=== PATIENT | male | born 1960 | race Caucasian/White ===

== ENCOUNTER 2016-10-05 09:01 | Inpatient (IN) | payer BC ==
[~2016-10-05] VITALS: Ht 182.9 cm; Wt 133.1 kg
--- NOTE | ~2016-10-05 | DS ---
ADMIT: 10/05/2016 RM/LOC: 521 [facility] MR#: [id number] [facility]#: [id number] [address] [facility] [address] [place] [id number] CARIN AQUINO [address] [place] [address] General Discharge Summary SEX: M AGE: 56 : 1960 ADMISSION DATE: 10/05/2016 DISCHARGE DATE: 10/07/2016 SERVICE: Neurosurgery. REASON FOR ADMISSION: 1. Lumbar spondylosis. 2. Lumbar foraminal stenosis. 3. Right foot drop. 4. Limb weakness. PROCEDURE: Lumbar laminectomy at L3 through S1, diskectomy as needed for fragments. HOSPITAL COURSE: Mr. Aquino tolerated his procedure well. Postoperatively, he was taken to the Med-Surg floor for monitoring and care. On postoperative day #1, he was awake and alert, he was afebrile, and his vital signs were stable. He was moving all extremities x4 with improving ambulation. His incision was clean, dry, and intact. He was working with Physical Therapy and Occupational Therapy and tolerated this quite well. On postoperative day #2, he was awake and alert, he was oriented x4. He was afebrile, and his vital signs were stable. He was moving all extremities x4 with 5/5 strength. His incision was clean, dry, and intact. His CARTER drain was patent with just a small amount of serosanguineous drainage, therefore was discontinued without difficulty. He was ambulating, urinating, and defecating per his norm and was requesting discharge home. DISCHARGE CONDITION: Good. MEDICATIONS: 1. Colace 100 mg p.o. b.i.d. 2. Bacitracin thin layer to his incision daily x14 days. 3. Percocet 5 one to two tablets p.o. q.4 hours p.r.n. 4. Valium 5 mg one to two tablets p.o. q.8 hours p.r.n. 5. Ramipril 10 mg daily. 6. Simvastatin 40 mg daily. 7. Nisoldipine ER 17 mg daily. 8. Atenolol/chlorthalidone 50/25 daily. DISCHARGE INSTRUCTIONS: Per Dr. Rivers; he can have a regular diet. He may shower, he should not take any tub baths, he should pat his incision dry. He ADMIT: 10/05/2016 RM/LOC: 521 [facility] MR#: [id number] [address] [facility] [address] [place] [id number] CARIN AQUINO [address] [place] [address] General Discharge Summary SEX: M AGE: 56 : 1960 should not lift, push, or pull anything greater than 15 [address] not [address] if he is taking any of his pain medicines. He will call with any questions or concerns including neurological worsening, signs or symptoms of infection, or any other issues. FOLLOWUP: He will follow up in the [facility] with Mile Landis APRN, in two weeks per his request. DISPOSITION: He was discharged home. Total duyc-bf-rjok time for the discharge planning, care and coordination was 30 minutes. Mile Landis APRN / Mason Rivers MD / tamar JOB #: [id number] CC: Mason Rivers MD, Attending Physician Aranza Webster MD, Family Physician
[2016-10-08] MEDS ORDERED: SULAR17 MG PO (10:23)
[2016-10-08] MEDS ORDERED: ALTACE DPS10 MG PO (10:23)
[2016-10-08] MEDS ORDERED: COLACE-DPS100 MG PO (10:24)
[2016-10-08] MEDS ORDERED: BACITRACIN--O.0.9 GM TP (10:24)
[2016-10-08] MEDS ORDERED: ATENOLOL-CHLOR1 EACH PO (10:24)
[2016-10-08] MEDS ORDERED: ZOCOR DPS40 MG PO (10:24)
[2016-10-08] MEDS ORDERED: OXY IR DPS5 MG PO (10:25)
[2016-10-08] MEDS ORDERED: VALIUM-DPS5 MG PO (10:25)
[2016-10-08] MEDS ORDERED: TYLENOL DPS325 MG PO (10:25)
--- NOTE | 2016-10-11 09:52 | OR ---
ADMIT: 10/05/2016 RM/LOC: 521 [facility] MR#: [id number] [address] [id number] CARIN AQUINO [address] [place] [address] Operative/Delivery Room Report SEX: M AGE: 56 : 1960 SURGERY DATE: 10/05/2016 SURGEON: Mason Rivers MD PREOPERATIVE DIAGNOSIS: Severe stenosis with possible herniated disk fragment and severe degenerative stenosis, lumbar 3-4, 4-5, and lumbar 5-sacral 1. POSTOPERATIVE DIAGNOSIS: Severe stenosis with possible herniated disk fragment and severe degenerative stenosis, lumbar 3-4, 4-5, and lumbar 5- sacral 1. PROCEDURE: Wide lumbar 3-4, 4-5, and lumbar 5 sacral 1 laminectomy with undercutting of the medial aspect of the facets where necessary for thorough decompression of the thecal sac posteriorly with intraoperative evaluation for any free disk fragments, none were found. INTERACTIVE MEDIA MARKETING SPECIALIST: Mile Landis APRN DESCRIPTION: After gaining informed consent, the patient was taken to operative theater, placed under general endotracheal anesthesia in a supine position. He was turned prone on a Jose Raul table. All pressure points were purposely padded prior to performing the procedure. A time-out was utilized to ascertain the correct site and side of surgery as well as other pertinent patient historical information. Counts were obtained at beginning and end of case and no changes betwixt the two. Antibiotics given before 1 hour of incision. The fluoroscope was brought into the field and L3 through S1 levels were delineated. An incision was fashioned in the midline, this was then taken down sharply through the thoracodorsal fascia, subperiosteally dissecting off the spinous process and lamina out toward the facets without injuring the posterior facet capsules. Pristine hemostasis was obtained. Self-retaining retractors were placed. At this point, various curettes, rongeurs, and a high- speed drill were used to resect as much of the posterior elements from overlying the lumbar 3-4 space and neural foramen through the 4-5 and L5-S1 levels. The very compressive degenerative ligamentum flavum was resected. The thecal sac was visualized and then the facets were undercut where necessary, widely decompressing the thecal sac posteriorly. Next our attention was paid to lumbar 3-4 level and down towards the 4-5 level trying to evaluate for what appeared to be a free disk fragment on the prior MRI, this was unable to be found intraoperatively. Once the thecal sac was widely decompressed, I was able to sound out of the neural foramen at lumbar 3-4, 4- 5, and lumbar 5 sacral 1 bilaterally and without sign of complication and with good apparent room for neurological transit. Attention was then turned to closure. A CARTER drain was daylighted out. The thoracodorsal fascia was closed with simple interrupted 0 Vicryl, simple inverted interrupted 2-0 Vicryl used ADMIT: 10/05/2016 RM/LOC: 521 [facility] MR#: [id number] [address] [place] [id number] CARIN AQUINO [address] [place] [address] Operative/Delivery Room Report SEX: M AGE: 56 : 1960 in the hypodermic tissue, and subcuticular 3-0 Stratafix on the skin. Ms. Landis assisted with suction, retraction, and closure at the end of the case. COMPLICATIONS: None. ESTIMATED BLOOD LOSS: Charted. SPECIMEN: Posterior elements. DISPOSITION: Extubated and taken to postanesthesia care unit. Mason Rivers MD/ tamar JOB #: [id number] CC: Mason Rivers, Attending Physician Aranza Webster, Family Physician
[2017-03-04] MEDS ORDERED: ULTRAM DPS50 MG PO (15:09)
[2017-03-04] MEDS ORDERED: SENOKOT-S TABL1 EACH PO (15:10)
[2017-03-04] MEDS ORDERED: PROTONIX40 MG PO (15:10)
[2017-03-04] MEDS ORDERED: ZANTAC DPS150 MG PO (15:11)
[2017-03-04] MEDS ORDERED: MIRALAX PACKET17 GM PO (15:11)
[2017-03-04] MEDS ORDERED: ASA325 MG PO (15:12)
== END 2016-10-07 11:45 | disposition home or self-care (01) | DRG 516 ==
LOC: WOR 09:01 → 5MS 09:01
PROVIDERS: ADMIT Neurological Surgery
PROC: 01NB0ZZ Release Lumbar Nerve, Open Approach (ICD-10-PCS; principal; 2016-10-05)
DX: M51.27 Other intervertebral disc displacement, lumbosacral region (principal); Z68.41 Body mass index [BMI] 40.0-44.9, adult; I10 Essential (primary) hypertension; M48.07 Spinal stenosis, lumbosacral region; E78.5 Hyperlipidemia, unspecified; M21.371 Foot drop, right foot; F17.210 Nicotine dependence, cigarettes, uncomplicated; M47.896 Other spondylosis, lumbar region; M54.16 Radiculopathy, lumbar region; E66.9 Obesity, unspecified; M19.90 Unspecified osteoarthritis, unspecified site; Z96.651 Presence of right artificial knee joint